=== PATIENT | male | born 1965 | race Caucasian/White ===

== ENCOUNTER 2025-01-25 12:57 | Observation (INO) | payer OTHER, SELFPAY ==
[2025-01-25] VITALS (8 sets, daily range): BP systolic 113–136; BP diastolic 66–88; PULSE 60–97; RESP 15–17; TEMP 36.7; O2SAT 92–98; BMI 34.5
--- NOTE | 2025-01-25 13:05 | ECG_ITS ---
[email or web address] Test Date: 2025-01-25 Pat Name: Juan Ramon Almeida Department: Room: Gender: Male Fuel Cell Technician: : 1965 Requested By: Fela Mace Order Number: [id number] MD: SCOTT COELLO Measurements Intervals [place] Rate: 99 P: 53 [place]: 164 QRS: -6 QRSD: 87 T: -2 QT: 306 QTc: 394 Interpretive Statements SINUS RHYTHM LOW QRS VOLTAGE IN PRECORDIAL LEADS [QRS DEFLECTION < 1.0 mV IN CHEST LEADS] MINIMAL VOLTAGE CRITERIA FOR LVH, CONSIDER NORMAL VARIANT [MEETS CRITERIA IN ONE OF: R(aVL), S(V1), R(V5), R(V5/V6)+S(V1)] ANTERIOR MYOCARDIAL INFARCTION , PROBABLY OLD [40+ ms Q WAVE AND/OR ST/T ABNORMALITY IN V3/V4] INFERIOR MYOCARDIAL INFARCTION , PROBABLY OLD [40+ ms Q WAVE AND/OR ST/T ABNORMALITY IN II/aVF] No previous ECG available for comparison Electronically Signed On 01-26-2025 23:36:04 CRUSHING MACHINE OPERATOR by SCOTT COELLO [email or web address] [id number]
--- NOTE | 2025-01-25 13:12 | XRR_ITS ---
PROCEDURE INFORMATION: Exam: XR Chest Exam date and time: 01/25/2025 1:17 PM Age: 59 years old Clinical indication: Shortness of breath; Additional info: SOB TECHNIQUE: Imaging protocol: Radiologic exam of the chest. Views: 1 view. COMPARISON: No relevant prior studies available. FINDINGS: Lungs: Unremarkable. No consolidation. Pleural spaces: Unremarkable. No pleural effusion. No pneumothorax. Heart/Mediastinum: Unremarkable. No cardiomegaly. Bones/joints: Unremarkable. XR/XR chest 1V portable [id number] IMPRESSION: No acute findings.
[2025-01-25 14:30] LABS: Basophils # 0.1 10^3/uL (0.0-0.1); Basophils % 1.1 %; Eosinophils # 0.1 10^3/uL (0.0-0.8); Eosinophils % 0.9 %; Hematocrit 45.1 % (37-53); Lymphocytes % 23.4 %; Mean Corpuscular HGB Conc 32.8 g/dL (30-55); Mean Corpuscular Hemoglobin 27.5 pg (27-33); Mean Corpuscular Volume 83.8 fl (82-101); Mean Platelet Volume 9.7 fL (7.4-10.4); Monocytes # 0.7 10^3/uL (0.2-0.9); Monocytes % 8.5 %; Neutrophils # 5.58 10^3/uL (1.8-7.7); Neutrophils % 65.6 %; Nucleated Red Blood Cells % 0 %; Platelet Count 203 10^3/cmm (157-399); Red Blood Count 5.38 10^6/uL (3.85-5.65); Red Cell Distribution Width 17.4 % (12.1-15.1)
[2025-01-25 14:43] LABS: Influenza A NEGATIVE (Negative); Influenza B NEGATIVE (Negative); Respiratory Syncytial Virus Ce NEGATIVE (Negative); SARS-CoV-2 PCR NEGATIVE (Negative)
[2025-01-25 14:55] LABS: Troponin(5th) Baseline 16 ng/L (0-15)
[2025-01-25 15:02] LABS: Alanine Aminotransferase 30 U/L (0-41); Albumin Level 4.4 g/dL (3.5-5.2); Alkaline Phosphatase 51 U/L (40-130); Aspartate Amino Transferase 20 U/L (0-40); Blood Urea Nitrogen 19 mg/dL (8-23); Carbon Dioxide 22 mmol/L (22-29); Chloride 106 mmol/L (98-107); Creatinine Clr Calc Pharmacy 97.2516; Globulin 3.8 g/dL (1.3-4.6); Glomerular Filtration Rate 76.2 mL/min (90-130); Glucose 133 mg/dL (65-115); Lipase 48 U/L (13-60); NT Pro B Type Natriuretic Pept < 36 pg/mL (0-125); Osmolality Calculated 298 mOsm/kg (285-295); Sodium 142 mmol/L (136-145); Total Bilirubin 0.3 mg/dL (0.15-1.2); Total Protein 8.2 g/dL (6.6-8.7)
[2025-01-25 15:03] LABS: Anion Gap 17.7 (5-19); Potassium 3.7 mmol/L (3.5-5.1)
--- NOTE | 2025-01-25 15:12 | ECG_ITS ---
[facility] Test Date: 2025-01-25 Pat Name: Juan Ramon Almeida Department: Room: Gender: Male Mapping Specialist: : 1965 Requested By: Fela Mace Order Number: [id number] Reading MD: SCOTT COELLO Measurements Intervals [place] Rate: 88 P: 61 [place]: 149 QRS: 3 QRSD: 106 T: 16 QT: 349 QTc: 424 Interpretive Statements SINUS RHYTHM LOW QRS VOLTAGE IN PRECORDIAL LEADS [QRS DEFLECTION < 1.0 mV IN CHEST LEADS] INFERIOR MYOCARDIAL INFARCTION , PROBABLY OLD [40+ ms Q WAVE AND/OR ST/T ABNORMALITY IN II/aVF] Compared to ECG 01/25/2025 13:05:39 No significant changes Electronically Signed On 01-26-2025 23:47:52 FIELD APPLICATION ENGINEER by SCOTT COELLO [id number] [id number]
--- NOTE | 2025-01-25 16:32 | W.ED.SOB ---
HPI - SOB/Dyspnea General: Chief Complaint: Shortness of Breath/Dyspnea Stated Complaint: sob, light headed, cp Time Seen by Provider: 01/25/25 16:01 History of Present Illness: HPI Narrative: 59-year-old male presents emergency room with complaint of chest discomfort that began earlier today last week he had an episode of bronchitis he was treated for that he said he took some days off work he said several sick contacts he has had off-and-on chest pain the last few days it was worse today pressure sensation associated with shortness of breath. Radiates into his neck and arm the other times she has had this it has been relieved with breathing treatments. Patient is diabetic he does not smoke he does have some reactive airways use albuterol occasionally. He has no known history of coronary artery disease or arrhythmias. He is not currently having any chest discomfort. Associated symptoms: Reports chest pain; Deny abdominal pain or fever(s) Related Data Home Medications ?Medication ?Instructions ?Recorded ?Confirmed albuterol sulfate 2.5 mg/3 mL 2.5 mg inhalation QID 01/25/25 01/25/25 (0.083 %) solution for nebulization amlodipine 5 mg tablet 5 mg PO BID 01/25/25 01/25/25 empagliflozin 25 mg tablet 25 mg PO DAILY 01/25/25 01/25/25 (Jardiance) losartan 25 mg tablet 25 mg PO BID 01/25/25 01/25/25 rosuvastatin 10 mg tablet 10 mg PO DAILY 01/25/25 01/25/25 sertraline 25 mg tablet 25 mg PO DAILY 01/25/25 01/25/25 Allergies Allergy/AdvReac Type Severity Reaction Status Date / Time No Known Allergies Allergy Verified 01/25/25 13:10 Review of Systems Const: Denies: fever(s) or chills Card: Reports: chest pain Resp: Reports: dyspnea GI: Denies: abdominal pain : Denies: dysuria, urinary frequency or urinary urgency Musc: Denies: neck pain or back pain Skin/Breast: Denies: rash PFSH ED PFSH: Medical History (Updated 01/27/25 @ 06:11 by Ajay Hudson DO) Diabetes Hypertension Physical Exam Const: GENERAL APPEARANCE: cooperative ORIENTATION/CONSCIOUSNESS: Yes awake, Yes oriented to person, Yes oriented to place and Yes oriented to time HENMT: COMMON NORMALS: normocephalic, atraumatic and hearing grossly normal bilaterally HEAD & SCALP: normocephalic and atraumatic Resp: COMMON NORMALS: normal respiratory effort, No retractions, No use of accessory muscles and clear to auscultation bilaterally AUSCULTATION: clear to auscultation bilaterally Cardio: COMMON NORMALS: regular rate, regular rhythm and No murmurs present (Cardio) RATE: regular rate RHYTHM: regular rhythm GI: COMMON NORMALS: Soft to palpation and No hepatosplenomegaly present AUSCULTATION: Yes normoactive bowel sounds PALPATION: Yes Soft to palpation, No Tenderness to palpation present (GI), No Guarding due to palpation present (GI) and Yes No hepatosplenomegaly present Extremity: COMMON NORMALS: normal to inspection, capillary refill normal, no clubbing, cyanosis or edema, no calf tenderness and no pedal edema Neuro: SENSORIUM/ORIENTATION: Yes oriented to person, Yes oriented to place and Yes oriented to time Skin: COMMON NORMALS: no rashes or lesions noted GENERAL SKIN EXAM: no rashes or lesions noted Course Vital Signs: Vital signs: Vital Signs Temperature 97.9 F 01/27/25 04:00 Pulse Rate 74 01/27/25 04:00 Respiratory Rate 20 H 01/27/25 04:00 Blood Pressure 133/79 01/27/25 04:00 Pulse Oximetry 98 01/27/25 04:00 Oxygen Delivery Me thod Room Air 01/27/25 04:00 Fraction of Inspir ed Oxygen 21 01/26/25 21:37 Clincial Decision Support The following clinical decision support tools were used to aid in care of the patient HEART Score -> History: Moderately Suspicious, EKG: Non-specific Changes, Age: 45-64 yrs, Risk Factors: >/=3 Risk Factors, Troponin: Baseline Trop 16-45 ng/L. Resulting HEART Score: 6. MDM - SOB/Dyspnea Medical Decision Making Heart score of 6 with significant risk factors will admit for further workup Lab Data 01/25/25 14:04 01/25/25 14:04 Labs/Radiology: Radiology Impressions Chest X-Ray 01/25/25 13:12 IMPRESSION: No acute findings. Laboratory Results WBC 8.50 10^3/uL (3.29-11.43) 01/25/25 14:04 RBC 5.38 10^6/uL (3.85-5.65) 01/25/25 14:04 Hgb 14.80 g/dL (11.27-16.99) 01/25/25 14:04 Hct 45.1 % (37-53) 01/25/25 14:04 MCV 83.8 fl (82-101) 01/25/25 14:04 MCH 27.5 pg (27-33) 01/25/25 14:04 MCHC 32.8 g/dL (30-55) 01/25/25 14:04 RDW 17.4 % (12.1-15.1) H 01/25/25 14:04 Plt Count 203 10^3/cmm (157-399) 01/25/25 14:04 MPV 9.7 fL (7.4-10.4) 01/25/25 14:04 Neut % (Auto) 65.6 % 01/25/25 14:04 Lymph % (Auto) 23.4 % 01/25/25 14:04 Yancey % (Auto) 8.5 % 01/25/25 14:04 Eos % (Auto) 0.9 % 01/25/25 14:04 Baso % (Auto) 1.1 % 01/25/25 14:04 Neut # (Auto) 5.58 10^3/uL (1.8-7.7) 01/25/25 14:04 Lymph # (Auto) 2.0 10^3/uL (0.8-4.8) 01/25/25 14:04 Yancey # (Auto) 0.7 10^3/uL (0.2-0.9) 01/25/25 14:04 Eos # (Auto) 0.1 10^3/uL (0.0-0.8) 01/25/25 14:04 Baso # (Auto) 0.1 10^3/uL (0.0-0.1) 01/25/25 14:04 Nucleated RBC % (auto) 0 % 01/25/25 14:04 Nucleated RBCs # 0.0 /100WBC 01/25/25 14:04 D-Dimer 0.71 ug/mLFEU (0-0.59) H 01/25/25 14:04 Sodium 142 mmol/L (136-145) 01/25/25 14:04 Potassium 3.7 mmol/L (3.5-5.1) 01/25/25 14:04 Chloride 106 mmol/L (98-107) 01/25/25 14:04 Carbon Dioxide 22 mmol/L (22-29) 01/25/25 14:04 Anion Gap 17.7 (5-19) 01/25/25 14:04 BUN 19 mg/dL (8-23) 01/25/25 14:04 Creatinine 1.0 mg/dL (0.7-1.2) 01/25/25 14:04 GFR Calculation 76.2 mL/min (90-130) L 01/25/25 14:04 Glucose 133 mg/dL (65-115) H 01/25/25 14:04 Estimat Average Glucose 171 01/25/25 14:04 Hemoglobin A1c 7.6 % (4.0-6.0) H 01/25/25 14:04 Calculated Osmolality 298 mOsm/kg (285-295) H 01/25/25 14:04 Calcium 10.0 mg/dL (8.5-10.5) 01/25/25 14:04 Total Bilirubin 0.3 mg/dL (0.15-1.2) 01/25/25 14:04 AST 20 U/L (0-40) 01/25/25 14:04 ALT 30 U/L (0-41) 01/25/25 14:04 Alkaline Phosphatase 51 U/L (40-130) 01/25/25 14:04 Troponin T Baseline 16 ng/L (0-15) H 01/25/25 14:04 Troponin T 120 Minute 14.50 ng/L (0-15) 01/25/25 16:31 Delta Troponin T -1.50 ABS# (0-10) L 01/25/25 16:31 NT-Pro-B Natriuret Pep < 36 pg/mL (0-125) 01/25/25 14:04 Total Protein 8.2 g/dL (6.6-8.7) 01/25/25 14:04 Albumin 4.4 g/dL (3.5-5.2) 01/25/25 14:04 Globulin 3.8 g/dL (1.3-4.6) 01/25/25 14:04 Triglycerides 414 mg/dL (0-150) H 01/25/25 16:31 Cholesterol 133 mg/dL (0-200) 01/25/25 16:31 LDL Cholesterol Direct 66 mg/dL (0-100) 01/25/25 16:31 LDL Cholesterol, Calc Not Reportable 01/25/25 16:31 HDL Cholesterol 39 mg/dL (60-100) L 01/25/25 16:31 LDL/HDL Ratio Not Reportable 01/25/25 16:31 Cholesterol/HDL Ratio 3.41 mg/dL (1.0-5.00) 01/25/25 16:31 Lipase 48 U/L (13-60) 01/25/25 14:04 Influenza A (PCR) Negative (Negative) 01/25/25 14:00 Influenza Type B (PCR) Negative (Negative) 01/25/25 14:00 RSV (PCR) Negative (Negative) 01/25/25 14:00 SARS-CoV-2 (PCR) Negative (Negative) 01/25/25 14:00 All radiology interpretation(s) finalized by discharge Discharge Plan Discharge Patient Disposition: Placed in Observation Admit Provider: Pippa Corcoran Clinical Impression: Angina at rest, Hypertension Discharge Diet: Cardiac and Diabetic Discharge Activity: Resume usual activity Coding Level of Care Code ED Woods Rider for Azam Ireland
[2025-01-25] MEDS: LORazepam 2 mg/mL INJ 1 mL 1 MG IVP (16:51)
--- NOTE | 2025-01-25 18:27 | PM.HP ---
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 Patient is stating that around lunchtime 1 PM he started experiencing chest discomfort which he is describing as pressure-like sensation lasted for about an hour it was 5/10, he did feel nauseous and short of breath, decided to come to the hospital for further evaluation, troponins are trending down, EKG done but did not show any infarctive or ischemic changes, at the time of my evaluation chest pain is absent, patient is stating that there is slight discomfort he would rated as 1/10 Request D-dimer and cardiac stress test respiratory panel negative Patient is stating that his and son are suffering from bronchitis, He travels 1 hour daily to come to [place] from [place] No previous history of [place] CHF or coronary disease, denies family history as well Review of Systems Const: Denies: fever(s) Eyes: Denies: change in vision ENMT: Denies: throat pain Card: Reports: chest pain Resp: Reports: dyspnea GI: Denies: abdominal pain : Denies: flank pain Medications/Allergies Home Medications ?Medication ?Instructions ?Recorded ?Confirmed ?Last Taken ?Type albuterol sulfate 2.5 mg/3 mL 2.5 mg inhalation QID 01/25/25 01/25/25 01/25/25 History (0.083 %) solution for nebulization amlodipine 5 mg tablet 5 mg PO BID 01/25/25 01/25/25 01/25/25 History empagliflozin 25 mg tablet 25 mg PO DAILY 01/25/25 01/25/25 01/25/25 History (Jardiance) losartan 25 mg tablet 25 mg PO BID 01/25/25 01/25/25 01/25/25 History rosuvastatin 10 mg tablet 10 mg PO DAILY 01/25/25 01/25/25 01/25/25 History sertraline 25 mg tablet 25 mg PO DAILY 01/25/25 01/25/25 01/25/25 History Allergies Allergy/AdvReac Type Severity Reaction Status Date / Time No Known Allergies Allergy Verified 01/25/25 13:10 PFSH Acute PFSH: Medical History (Updated 01/25/25 @ 20:26 by Marie Brown MD) Diabetes Hypertension Vitals/I&O/Wt Last Vital Signs Temp 98.0 F 01/25/25 13:02 Pulse 75 01/25/25 17:40 BP 116/69 01/25/25 17:40 Pulse Ox 92 01/25/25 17:40 O2 Del Method Room Air 01/25/25 13:02 Weight last 48 hrs Weight 109.316 kg Physical Exam Narrative: Awake and alert Chest pain-free Hemodynamic stable Euvolemic GCS 15 Pleasant and cooperative Nonfocal neuroexam Abdomen soft No audible stridor or wheezing Data 01/25/25 14:04 01/25/25 14:04 A&P Assessment and plan (1) Angina at rest: (2) Diabetes: (3) Hypertension: Plan Angina equivalent symptoms Risk factors present with hypertension, diabetes age Patient does not smoke or drink alcohol Troponin trending down, EKG without ischemic or infarctive changes Currently chest pain-free Will require stress test in the morning Lexiscan Will request echo, Continue losartan Insulin with sliding scale N.p.o. after midnight Full code Cardiac consistent carb diet for now Further plan will be made after reviewing stress test report and echo Patient respiratory panel is negative, and son sick with bronchitis Patient denying fever Will request D-dimer PDMP PDMP Reviewed: Not Reviewed Attestations Medical Necessity Statement*: Anticipating discharge within 48 hours Diagnoses Angina at rest I20.89 Diabetes E11.9 Hypertension I10
--- NOTE | 2025-01-25 18:29 | ECG_ITS ---
[facility] Test Date: 2025-01-26 Pat Name: Juan Ramon Almeida Department: Room: 106 Gender: Male Bottom Brusher: : 1965 Requested By: Marie Brown Order Number: [id number] MD: Norm Allison M.D. Interpretive Statements Lung unchanged pre/post procedure; Intraprocedure shortess of breath; Symptoms resoled by discharge [email or web address] [id number]
--- NOTE | 2025-01-25 18:29 | USCV_ITS ---
Juan Ramon Almeida Age: 59 Gender: M : 1965 Exam Date: 01/25/2025 20:52 Ordering Phys: Marie Brown MD Technologist: MAXINE [place] [facility] [place]: UA BP: 127 / 85 HR: 70 Rhythm: Sinus Technical Quality: Adequate MEASUREMENTS (Male / Female) Normal Values 2D ECHO LV Diastolic Diameter PLAX 4.6 cm 4.2 - 5.9 / 3.9 - 5.3 cm IVS Diastolic Thickness 1.7 cm 0.6 - 1.0 / 0.6 - 0.9 cm IVS Systolic Thickness 1.9 cm LVPW Diastolic Thickness 1.4 cm 0.6 - 1.0 / 0.6 - 0.9 cm LVPW Systolic Thickness 2.0 cm LVOT Diameter 2.4 cm LV Ejection Fraction 2D Teich 58.5 % LV Ejection Fraction MOD 4C 50.2 % LV Ejection Fraction MOD 2C 73.9 % LV Ejection Fraction 2C AL 74.3 % LA Diameter 3.7 cm Aorta at Sinotubular Diameter 3.3 cm IVC Diameter 1.7 cm M-MODE LA Ao Ratio MM 1.4 AV Cusp Separation MM 1.9 cm DOPPLER AV Peak Velocity 124.0 cm/s AV Area Cont Eq vti 3.8 cm squared AV Area Cont Eq pk 3.4 cm squared MV Peak Velocity 104.0 cm/s MV Area PHT 3.8 cm squared Mitral E to A Ratio 0.8 TV Peak E Velocity 43.0 cm/s PV Peak Velocity 116.0 cm/s FINDINGS Left Ventricle Normal left ventricular size, systolic function and wall thickness, with no regional wall motion abnormalities. Left ventricular ejection fraction is estimated at 60 %. Right Ventricle The right ventricle is normal in size and function. Right Atrium The right atrium is normal in size. Left Atrium The left atrium is normal in size. Mitral Valve Structurally normal mitral valve without significant stenosis or prolapse. There is no mitral regurgitation. Aortic Valve Structurally normal aortic valve without significant sclerosis or stenosis. There is no aortic regurgitation. Tricuspid Valve Mild tricuspid valve regurgitation. Pulmonic Valve Structurally normal pulmonic valve without significant stenosis. There is no pulmonic regurgitation. Pericardium Normal pericardium without effusion. Aorta Normal ascending aorta dimension. IVC The inferior vena cava appears normal. CONCLUSIONS Normal left ventricular size, systolic function and wall thickness, with no regional wall motion abnormalities. Left ventricular ejection fraction is estimated at 60 %. There is no pericardial effusion. No significant valve abnormalities. Right atrial pressure is around 5 mm of mercury. Marie Morgan MD (Electronically Signed) Final Date: 26 January 2025 11:25 S
--- NOTE | 2025-01-25 19:12 | ECG_ITS ---
[facility] Test Date: 2025-01-25 Pat Name: Juan Ramon Almeida Department: Room: 106 Gender: Male Wood Gang Sawyer: : 1965 Requested By: Fela Mace Order Number: [id number] Reading MD: SCOTT COELLO Measurements Intervals [place] Rate: 64 P: 57 [place]: 165 QRS: -4 QRSD: 109 T: 26 QT: 382 QTc: 395 Interpretive Statements SINUS RHYTHM LOW QRS VOLTAGE IN PRECORDIAL LEADS [QRS DEFLECTION < 1.0 mV IN CHEST LEADS] MODERATE VOLTAGE CRITERIA FOR LVH, CONSIDER NORMAL VARIANT [MEETS CRITERIA IN ONE OF: R(aVL), S(V1), R(V5), R(V5/V6)+S(V1)] NONSPECIFIC T-WAVE ABNORMALITY Compared to ECG 01/25/2025 15:34:57 T-wave abnormality now present Myocardial infarct finding no longer present Electronically Signed On 01-26-2025 23:46:28 HOUSEKEEPING MANAGER by SCOTT COELLO [id number] [id number]
[2025-01-25] MEDS: enoxaparin 40 mg/0.4 mL Syringe SUBCUT (19:30)
[2025-01-25 20:40] LABS: Troponin 5 6HR 15.18 ng/L (0-15)
[2025-01-25 20:44] LABS: D Dimer 0.71 ug/mLFEU (0-0.59)
[2025-01-25 20:46] LABS: Troponin 5 6HR Delta -0.82 ng/L (0-12)
[2025-01-25 20:54] LABS: Chol HDL Ratio 3.41 mg/dL (1.0-5.00); Cholesterol 133 mg/dL (0-200); HDL Cholesterol 39 mg/dL (60-100); Triglycerides 414 mg/dL (0-150)
[2025-01-25] MEDS: lidocaine 2% viscous 15 ML, aluminum-mag hydrox-simethicon 30 ML, sucralfate oral liq 1 GM PO (20:54)
[2025-01-25 21:01] LABS: Estmated Average Glucose 171; Hemoglobin A1C 7.6 % (4.0-6.0)
[2025-01-25 21:07] LABS: LDL Cholesterol Direct 66 mg/dL (0-100)
[2025-01-26] VITALS (12 sets, daily range): BP systolic 122–137; BP diastolic 77–90; PULSE 60–81; RESP 1–19; TEMP 36.5–36.7; O2SAT 94–100
[2025-01-26 03:55] LABS: Magnesium 2.1 mg/dL (1.7-2.3); Phosphorus 3.6 mg/dL (2.5-4.5)
--- NOTE | 2025-01-26 06:32 | PC.NURSE ---
patient went off the floor for a stress test approximately 0620
[2025-01-26] MEDS: regadenoson 0.4 Mg/5 ml Syringe IVP (06:57)
[2025-01-26] MEDS: albuterol 2.5 mg/3 mL Neb INHALATION ×4 (08:47→21:37)
[2025-01-26] MEDS: amlodipine 5 mg Tablet PO ×2 (09:11→17:42)
[2025-01-26] MEDS: losartan 50 mg Tablet 25 MG PO ×2 (09:11→17:42)
[2025-01-26] MEDS: atorvastatin 40 mg Tablet PO (09:11)
--- NOTE | 2025-01-26 10:05 | PC.CHAP ---
Pastoral Care Encounter/Spiritual Assessment Type of Contact [] Declined boiler tube blower visit [] Patient/Family/Request visit [] Outpatient visit [] Follow-up visit [] Physician referral [] Code/Alert [x] Routine visit [] Staff referral [] Actively dying [] Patient sleeping [] Family support [] [] Out of room [] Palliative care [] [] Receiving care in room [] Pre-surgical visit [] Trauma [] Long length of stay [] ICU visit [] Other: Relational/Emotional Strength [x] Patient feels connected with others/family/visitors/staff [] Distress [] Loneliness/isolation [] Abandonment Spirituality of Patient [x] Person of Alexandra [] Attends Sabianism of their Alexandra [x] Believes in Prayer [] Reads Bible or Zoroastrian materials [] There are Spiritual issues to be addressed Household Refrigeration Mechanic Interventions [x] Prayer [x] Active listening [] Non-anxious presence [x] Spiritual/emotional support [] Crisis/trauma care [] Spiritual counseling [] Bereavement support [] Provided bereavement packet [] Provided Bible/devotional materials [] Provided toy/stuffed animal, coloring book to patient or family member [] Provided Communion [] Anointing/[place] [] Salvation [x] Completed spiritual assessment [] Other: Impact on Illness or Injury [] Angry [] Fearful [] Anxious [] Often cries [] Exhaustion [] Unable to work [] Unable to attend church [] Unable to walk/stand [] Unable to read [] Unable to drive [] Unable to eat/drink [] Unable to sleep [] Unable to be with family [] Patient intubated [] Other: Summary Time spent with patient 5 min
--- NOTE | 2025-01-26 12:13 | P.PN_ITS ---
Subjective 2 Subjective: Seen this morning. Patient states he has not ever had chest pain like this before. It was a constant pressure and patient became diaphoretic lightheaded around the same time. He has not seen any high blood pressures at home. He underwent stress testing this morning. Awaiting results at this time. Denies any chest pain at this time. Heart score is 6. Vitals/I&O/Wt Last Vital Signs Temp 97.8 F 01/26/25 11:30 Pulse 79 01/26/25 11:47 Resp 16 01/26/25 11:47 BP 130/78 01/26/25 11:30 Pulse Ox 99 01/26/25 11:47 O2 Del Method Room Air 01/26/25 11:47 FiO2 21 01/25/25 23:59 01/25/25 01/26/25 01/26/25 22:59 06:59 14:59 Intake Total 300 / 300 480 / 780 480 / 480 Balance 300 / 300 480 / 780 480 / 480 Weight last 48 hrs Weight 112.99 kg Weight 114.487 kg Weight 109.316 kg Physical Exam 2 Narrative: Awake and alert Chest pain-free Hemodynamic stable Euvolemic GCS 15 Pleasant and cooperative Nonfocal neuroexam Abdomen soft No audible stridor or wheezing Data 01/25/25 14:04 01/25/25 14:04 A&P Assessment and plan (1) Angina at rest: (2) Diabetes: (3) Hypertension: Plan Angina equivalent symptoms Risk factors present with hypertension, diabetes age Patient does not smoke or drink alcohol Troponin trending down, EKG without ischemic or infarctive changes Currently chest pain-free Will require stress test in the morning Lexiscan Will request echo, Continue losartan Insulin with sliding scale N.p.o. after midnight Full code Cardiac consistent carb diet for now Further plan will be made after reviewing stress test report and echo Patient respiratory panel is negative, and son sick with bronchitis Patient denying fever Will request D-dimer 01/26/2025 Awaiting stress test results. Will consult cardiology. Echo does not show any wall motion abnormalities. Patient's chest pain had typical characteristics for cardiac in nature. Await cardiology consultation. If no further workup warranted patient may be able to discharge home later today. PDMP PDMP Reviewed: Not Reviewed Attestations 2 Medical Necessity Statement*: Anticipating discharge within 48 hours Diagnoses Angina at rest I20.89 Diabetes E11.9 Hypertension I10
[2025-01-26] MEDS: enoxaparin 40 mg/0.4 mL Syringe SUBCUT (17:43)
--- NOTE | 2025-01-26 18:29 | NMCV_ITS ---
NM verenice perf SPECT r/s* [id number] AutumnJuan Ramon choe Age: 59 Gender: M : 1965 Exam Date: 01/26/2025 18:29 Ordering Phys: Marie Brown MD Technologist: BRANDO Barajas Exam Location: [facility] Indications: cp STRESS TEST Please see separate stress test report in [facility] for full findings IMAGE PROTOCOL Rest/Stress 1 Lexiscan Day Radiopharmaceutical Dose (mCi) Administration Site Administered by Rest: Tc-99m 10.9 IV BRANDO Barajas Sestamibi Stress:Tc-99m 32.9 IV BRANDO Johnson Sestamibi Rest: 26-Jan-2025 60 Discovery 630 Stress: 26-Jan-2025 30 Discovery 630 0.4mg Lexiscan. Images obtained in supine and prone position. SPECT RESULTS Technical Quality: Good Raw Data Analysis: Normal Image Corrections: No attenuation or motion correction applied Summed Stress Score: 3 Summed Rest Score: 1 Summed Difference Score: 3 PERFUSION FINDINGS Small to medium sized area of reduced radiotracer uptake inferolateral erazo. This is consistent with small to medium sized area of prior infarct seen in RCA and circumflex artery territories. No significant ischemia. FUNCTIONAL RESULTS (calculated via Gated SPECT) Stress Image LV EF (%): 59 Stress EDV (mL):128 TID: 0.99 Stress ESV (mL):53 FUNCTIONAL FINDINGS: There is normal left ventricular systolic function. IMPRESSIONS 1. 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 No significant ischemia. 2. LV systolic function is normal Norm Allison MD (Electronically Signed) Final Date: 26 January 2025 09:16 S
--- NOTE | 2025-01-26 20:31 | PM.CONSULT ---
Providers/Reason For Consult Consulting Physician/Specialty*: Marie Morgan MD Reason for Consult*: Chest pain Requesting Physician: Dr. Corcoran Attending Physician: Pippa Corcoran MD History of Present Illness History of Present Illness Juan Ramon Almeida is a 59 year old male with a history of diabetes and hypertension that came into the emergency room yesterday due to chest pain. He states that last week he had an episode of bronchitis that he was treated for. He states for the last few days he has had on and off chest pressure sensation associated with shortness of breath. He states that she usually relieved with breathing treatments but when he came in he had severe chest pressure across his whole chest with weakness. He denies any history of coronary artery disease. He denies any history of chest pain at this time. He states he has been coughing quite a bit and a lot of his pain and pressure occurs with deep breaths. On exam he does have some rhonchi present. His EKG was without ST elevation or T wave abnormalities, echo was done that showed normal ejection fraction with no regional wall motion abnormalities. Stress test was done that was negative for ischemia. Heart function was normal. Troponin was stable at 16-14-15. Review of Systems Narrative: Consitutional: denies fever, chills, body aches, or changes in appetite, denies abnormal weight loss Eyes: Denies changes in vision Card: reports chest pressure with coughing and deep inspiration, palpitations, irregular heart rhythm, edema, syncope, shortness of breath, orthopnea, leg pain with exertion Resp: Denies shortness of breath, reports cough GI: denies abdominal pain, denies nausea or vomiting, denies blood in stool : denies blood in urine, denies dysuria Musc: Denies extremity pain, denies limited range of motion or recent injury Skin: Denies rash, lesions, or wounds, denies changes to skin color Neuro: Denies nubmness in extremities, h/a, s/s of stroke Sandro: Denies easy bruiding/bleeding Medications/Allergies Home Medications ?Medication ?Instructions ?Recorded ?Confirmed ?Last Taken ?Type albuterol sulfate 2.5 mg/3 mL 2.5 mg inhalation QID 01/25/25 01/25/25 01/25/25 History (0.083 %) solution for nebulization amlodipine 5 mg tablet 5 mg PO BID 01/25/25 01/25/25 01/25/25 History empagliflozin 25 mg tablet 25 mg PO DAILY 01/25/25 01/25/25 01/25/25 History (Jardiance) losartan 25 mg tablet 25 mg PO BID 01/25/25 01/25/25 01/25/25 History rosuvastatin 10 mg tablet 10 mg PO DAILY 01/25/25 01/25/25 01/25/25 History sertraline 25 mg tablet 25 mg PO DAILY 01/25/25 01/25/25 01/25/25 History Allergies Allergy/AdvReac Type Severity Reaction Status Date / Time No Known Allergies Allergy Verified 01/25/25 13:10 Current Medications Generic Name Dose Route Start Last Admin Trade Name Ramya PRN Reason Stop Dose Admin Albuterol Sulfate 2.5 mg 01/25/25 20:00 01/26/25 15:45 Albuterol 2.5 Mg/3 Ml Neb INHALATION 2.5 mg QID.RESPIRATORY ISIDRO Administration Amlodipine Besylate 5 mg 01/26/25 09:00 01/26/25 17:42 Amlodipine 5 Mg Tablet PO 5 mg BID ISIDRO Administration Atorvastatin Calcium 40 mg 01/26/25 09:00 01/26/25 09:11 Atorvastatin 40 Mg Tablet PO 40 mg DAILY ISIDRO Administration Enoxaparin Sodium 40 mg 01/25/25 18:30 01/26/25 17:43 Enoxaparin 40 Mg/0.4 Ml Syringe SUBCUT 40 mg Q24H ISIDRO Administration Losartan Potassium 25 mg 01/26/25 09:00 01/26/25 17:42 Losartan 50 Mg Tablet PO 25 mg BID ISIDRO Administration PFSH Acute PFSH: Medical History (Updated 01/25/25 @ 20:26 by Marie Brown MD) Diabetes Hypertension Vitals/I&O/Wt Last Vital Signs Temp 97.9 F 01/26/25 19:48 Pulse 74 01/26/25 19:48 Resp 13 01/26/25 19:48 BP 125/77 01/26/25 19:48 Pulse Ox 96 01/26/25 19:48 O2 Del Method Room Air 01/26/25 19:48 FiO2 21 01/25/25 23:59 01/26/25 01/26/25 01/26/25 06:59 14:59 22:59 Intake Total 480 / 780 840 / 840 240 / 1080 Balance 480 / 780 840 / 840 240 / 1080 Weight last 48 hrs Weight 249 lb 1.6 oz Weight 252 lb 6.4 oz Weight 241 lb Physical Exam Narrative: General: No apparent distress, healthy appearing, well nourished HENMT: normoceophalic Neck: No carotid bruit bilaterally Muskuloskeletal: Full ROM Lymphatic: no lymphedema noted Respiratory: Normal respiratory effort, rhonchi present bilateral upper lobes, no use of accessory muscles Cardio: No JVD, regular rate, regular rhythm, S1 S2 normal, no murmurs, peripheral pulses 2+ throughout GI: Normal to inspection, nondistended Extremities: Full ROM, normal, normal capillary refill, no cyanosis or edema Neuro: Alert and oriented x4, no focal motor deficits Psych: Affect normal, denies suicidal ideation, mental status grossly normal Skin: No rashes or lesions noted, no wounds Data 01/25/25 14:04 01/25/25 14:04 A&P Assessment and plan (1) Hypertension: (2) Angina at rest: (3) Diabetes: Plan The plan for this gentleman is to continue to monitor overnight. At this time he denies any chest pain. Most of his symptoms are consistent with possible respiratory illness including but not limited to bronchitis. Stress test was negative for ischemia. Echo was normal without wall motion abnormalities. Recommend observe overnight. If patient gets up and walks tomorrow and performs activity without chest pain or pressure patient may be discharged from a cardiac standpoint. Recommend further treatment of possible upper respiratory infection per hospitalist. Thank you, Dr. Corcoran, for allowing us to care for this very pleasant patient. PDMP PDMP Reviewed: Not Reviewed Consult Attestations Medical Necessity Statement: Deferred to primary. Coding Level of Care Code Acute Code for Chg Fwd Diagnoses Hypertension I10 Angina at rest I20.89 Diabetes E11.9
[2025-01-27] VITALS (7 sets, daily range): BP systolic 120–135; BP diastolic 73–85; PULSE 67–76; RESP 15–20; TEMP 36.3–36.9; O2SAT 94–98
[2025-01-27] MEDS: losartan 50 mg Tablet 25 MG PO (07:52)
[2025-01-27] MEDS: atorvastatin 40 mg Tablet PO (07:53)
[2025-01-27] MEDS: albuterol 2.5 mg/3 mL Neb INHALATION (08:08)
--- NOTE | 2025-01-27 11:50 | P.DS_ITS ---
Discharge Providers Date of Admission: 01/25/25 18:23 Date of Discharge: January 27, 2025 Attending Provider at Admission: Pippa Corcoran MD Attending Provider at Discharge: Pippa Corcoran MD Diagnoses at Discharge Discharge Diagnosis (1) Hypertension: Status: Acute (2) Angina at rest: Status: Resolved (3) Diabetes: Status: Acute Reason for Visit Reason for Visit: sob, light headed, cp Hospital Course Hospital Course Patient came into the hospital for chest pain. Underwent stress testing which was negative for ischemia. 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 He was seen by cardiology secondary to his chest pain being typical in nature from what he described. He was monitored in the hospital for another 24 hours. Chest pain did resolve and did not recur. He was discharged home in stable condition. I will give him a Z-Kareem at discharge. Physical Exam Narrative: Awake and alert Chest pain-free Hemodynamic stable Euvolemic GCS 15 Pleasant and cooperative Nonfocal neuroexam Abdomen soft No audible stridor or wheezing Discharge Data Studies Completed and Pending Completed Studies During Hospitalization Category Date Time Status Sestamibi Stress Test Request Routine Exams 01/25/25 18:29 Draft XR chest 1V portable [id number] Stat Exams 01/25/25 13:12 Completed NM verenice perf SPECT r/s* [id number] Routine Nuc Med 01/26/25 18:29 Completed CV. echo complete* [id number] Routine Ultrasound 01/25/25 18:29 Completed Radiology Impressions Chest X-Ray 01/25/25 13:12 IMPRESSION: No acute findings. Laboratory Results WBC 8.50 10^3/uL (3.29-11.43) 01/25/25 14:04 RBC 5.38 10^6/uL (3.85-5.65) 01/25/25 14:04 Hgb 14.80 g/dL (11.27-16.99) 01/25/25 14:04 Hct 45.1 % (37-53) 01/25/25 14:04 MCV 83.8 fl (82-101) 01/25/25 14:04 MCH 27.5 pg (27-33) 01/25/25 14:04 MCHC 32.8 g/dL (30-55) 01/25/25 14:04 RDW 17.4 % (12.1-15.1) H 01/25/25 14:04 Plt Count 203 10^3/cmm (157-399) 01/25/25 14:04 MPV 9.7 fL (7.4-10.4) 01/25/25 14:04 Neut % (Auto) 65.6 % 01/25/25 14:04 Lymph % (Auto) 23.4 % 01/25/25 14:04 [place] % (Auto) 8.5 % 01/25/25 14:04 Eos % (Auto) 0.9 % 01/25/25 14:04 Baso % (Auto) 1.1 % 01/25/25 14:04 Neut # (Auto) 5.58 10^3/uL (1.8-7.7) 01/25/25 14:04 Lymph # (Auto) 2.0 10^3/uL (0.8-4.8) 01/25/25 14:04 [place] # (Auto) 0.7 10^3/uL (0.2-0.9) 01/25/25 14:04 Eos # (Auto) 0.1 10^3/uL (0.0-0.8) 01/25/25 14:04 Baso # (Auto) 0.1 10^3/uL (0.0-0.1) 01/25/25 14:04 Nucleated RBC % (auto) 0 % 01/25/25 14:04 Nucleated RBCs # 0.0 /100WBC 01/25/25 14:04 D-Dimer 0.71 ug/mLFEU (0-0.59) H 01/25/25 14:04 Sodium 142 mmol/L (136-145) 01/25/25 14:04 Potassium 3.7 mmol/L (3.5-5.1) 01/25/25 14:04 Chloride 106 mmol/L (98-107) 01/25/25 14:04 Carbon Dioxide 22 mmol/L (22-29) 01/25/25 14:04 Anion Gap 17.7 (5-19) 01/25/25 14:04 BUN 19 mg/dL (8-23) 01/25/25 14:04 Creatinine 1.0 mg/dL (0.7-1.2) 01/25/25 14:04 GFR Calculation 76.2 mL/min (90-130) L 01/25/25 14:04 Glucose 133 mg/dL (65-115) H 01/25/25 14:04 Estimat Average Glucose 171 01/25/25 14:04 Hemoglobin A1c 7.6 % (4.0-6.0) H 01/25/25 14:04 Calculated Osmolality 298 mOsm/kg (285-295) H 01/25/25 14:04 Calcium 10.0 mg/dL (8.5-10.5) 01/25/25 14:04 Phosphorus 3.6 mg/dL (2.5-4.5) 01/26/25 03:09 Magnesium 2.1 mg/dL (1.7-2.3) 01/26/25 03:09 Total Bilirubin 0.3 mg/dL (0.15-1.2) 01/25/25 14:04 AST 20 U/L (0-40) 01/25/25 14:04 ALT 30 U/L (0-41) 01/25/25 14:04 Alkaline Phosphatase 51 U/L (40-130) 01/25/25 14:04 Troponin T Baseline 16 ng/L (0-15) H 01/25/25 14:04 Troponin T 120 Minute 14.50 ng/L (0-15) 01/25/25 16:31 Delta Troponin T -1.50 ABS# (0-10) L 01/25/25 16:31 Troponin T Hi Sens 6Hr 15.18 ng/L (0-15) H 01/25/25 20:05 Troponin T Hi Sens 6Hr Delta -0.82 ng/L (0-12) L 01/25/25 20:05 NT-Pro-B Natriuret Pep < 36 pg/mL (0-125) 01/25/25 14:04 Total Protein 8.2 g/dL (6.6-8.7) 01/25/25 14:04 Albumin 4.4 g/dL (3.5-5.2) 01/25/25 14:04 Globulin 3.8 g/dL (1.3-4.6) 01/25/25 14:04 Triglycerides 414 mg/dL (0-150) H 01/25/25 16:31 Cholesterol 133 mg/dL (0-200) 01/25/25 16:31 LDL Cholesterol Direct 66 mg/dL (0-100) 01/25/25 16:31 LDL Cholesterol, Calc Not Reportable 01/25/25 16:31 HDL Cholesterol 39 mg/dL (60-100) L 01/25/25 16:31 LDL/HDL Ratio Not Reportable 01/25/25 16:31 Cholesterol/HDL Ratio 3.41 mg/dL (1.0-5.00) 01/25/25 16:31 Lipase 48 U/L (13-60) 01/25/25 14:04 Influenza A (PCR) Negative (Negative) 01/25/25 14:00 Influenza Type B (PCR) Negative (Negative) 01/25/25 14:00 RSV (PCR) Negative (Negative) 01/25/25 14:00 SARS-CoV-2 (PCR) Negative (Negative) 01/25/25 14:00 Vitals Last Vital Signs Temp 97.4 F L 01/27/25 07:59 Pulse 69 01/27/25 08:10 Resp 16 01/27/25 08:10 BP 135/85 01/27/25 07:59 Pulse Ox 96 01/27/25 08:10 O2 Del Method Room Air 01/27/25 08:10 FiO2 21 01/26/25 21:37 Discharge Plan Discharge Patient Disposition: Home Condition: Stable Prescriptions: New azithromycin 500 mg tablet See Rx Instructions .ROUTE .COMPLEX Qty: 3 0RF Rx Instructions: For 250 mg dose pack: take 500 mg today (day 1), then 250 mg for 4 days (days 2-5) Continued albuterol sulfate 2.5 mg /3 mL (0.083 %) solution for nebulization 2.5 mg inhalation QID amlodipine 5 mg tablet 5 mg PO BID losartan 25 mg tablet 25 mg PO BID sertraline 25 mg tablet 25 mg PO DAILY rosuvastatin 10 mg tablet 10 mg PO DAILY Jardiance 25 mg tablet 25 mg PO DAILY Discharge Orders: Discharge Order (Routine); Ordered 01/27/25 Ordered By: Pippa Corcoran Other Ambulatory Orders: DME: Nebulizer with Neb Kit (Order) Location: None Selected Ordered By: Pippa Corcoran Referrals: [facility] [Outside] Marie Morgan MD [Physician] - 03/10/25 1:00 pm Lisa Chong FNP [Nurse Practitioner] - 02/10/25 2:00 pm Discharge Diet: Cardiac and Diabetic Discharge Activity: Resume usual activity Patient Instructions: Diabetes and Diet, Azithromycin (By mouth), Angina (DC), Chronic Hypertension (DC), Opioid Safety Stand Alone Forms: Work/School Release Discharge Attestations Time Spent in Discharge Care*: less than 30 min Quality Metrics Clinical Quality Measures [ No reported AMI, CVA or VTE this stay] Coding Level of Care Code Acute Code for Chg Fwd Diagnoses Hypertension I10 Angina at rest I20.89 Diabetes E11.9
--- NOTE | 2025-01-27 14:55 | P.PN_ITS ---
Subjective 2 Subjective: Patient doing well today. Still has some chest pressure whenever he coughs or takes a deep breath. Otherwise he is doing well with no complaints Vitals/I&O/Wt Last Vital Signs Temp 98.4 F 01/27/25 13:00 Pulse 75 01/27/25 13:00 Resp 18 01/27/25 13:00 BP 125/73 01/27/25 13:00 Pulse Ox 94 01/27/25 13:00 O2 Del Method Room Air 01/27/25 12:00 FiO2 21 01/26/25 21:37 01/26/25 01/27/25 01/27/25 22:59 06:59 14:59 Intake Total 240 / 1080 600 / 600 Balance 240 / 1080 600 / 600 Weight last 48 hrs Weight 251 lb 1.6 oz Weight 249 lb 1.6 oz Weight 252 lb 6.4 oz Physical Exam 2 Narrative: General: No apparent distress, healthy appearing, well nourished HENMT: normoceophalic Neck: No carotid bruit bilaterally Muskuloskeletal: Full ROM Lymphatic: no lymphedema noted Respiratory: Normal respiratory effort, rhonchi present bilateral upper lobes, no use of accessory muscles Cardio: No JVD, regular rate, regular rhythm, S1 S2 normal, no murmurs, peripheral pulses 2+ radial palpated bilaterally GI: Normal to inspection, nondistended Extremities: Full ROM, normal, normal capillary refill, no cyanosis or edema Neuro: Alert and oriented x4, no focal motor deficits Psych: Affect normal, denies suicidal ideation, mental status grossly normal Skin: No rashes or lesions noted, no wounds Data 01/25/25 14:04 01/25/25 14:04 A&P Assessment and plan (1) Hypertension: (2) Angina at rest: (3) Diabetes: Plan Stress test was negative for ischemia. From cardiology standpoint patient may be discharged home with follow-up. If patient continues to have chest pain in the future may require angiogram but at this time stress test negative and patient's symptoms are more geared towards the respiratory issues that he has had previously. PDMP PDMP Reviewed: Not Reviewed Attestations 2 Medical Necessity Statement*: May be discharged from a cardiology standpoint. Coding Level of Care Code Acute Code for [facility] Fwd Diagnoses Hypertension I10 Angina at rest I20.89 Diabetes E11.9
== END 2025-01-27 12:50 | disposition home or self-care (01) ==
LOC: ER 17:42 → CSU 18:41
PROVIDERS: Emergency Medicine; Internal Medicine; Admitting Provider Internal Medicine; Emergency Provider Family Medicine; Visit Provider Internal Medicine
DX: I20.89 Other forms of angina pectoris (principal); E11.9 Type 2 diabetes mellitus without complications; I10 Essential (primary) hypertension; Z79.899 Other long term (current) drug therapy; Z79.84 Long term (current) use of oral hypoglycemic drugs; Z11.52 Encounter for screening for COVID-19
CPT/HCPCS: 36415; 71045; 78452; 80053; 80061; 83036; 83690; 83721; 83735; 83880; 84100; 84484; 85025; 85378; 87637; 93005; 93017; 93306; 94640; 94660; 96372; 96374; 96375; 99285; A9500; G0378; J1650; J2060; J2785; J7613